=== PATIENT | female | born 1950 | race American Indian/Alaskan Native ===

== ENCOUNTER 2019-05-25 20:10 | Emergency (ER) | payer SELFPAY ==
--- NOTE | 2019-05-25 20:58 | Emergency Department Report ---
Chief Complaint: Chest Pain Stated Complaint: HIGH BP/MH EVAL - HPI History of Present Illness: 68 y.o. female with a history of HTn , bipolar, depression, and dementia presents with complaint of being on the floor, whining alot, and patient not eating. Patient is losing weight per granddaughter who she resides with. Patient states that she has been having chest pain for the past week. Patient denies auditory hallucinations, SI or HI. Patient has had no history of CAD and has had no prior stress studies. Daughter wants patient to be placed in [facility] and has behavioral health counselor at [place]. - Exam Vital Signs: reviewed MSE screening note: Focused history and physical exam performed. Due to findings the following was ordered: Patient ordered both a cardiac panel and will be ordered a psych clearance panel as well. ED Disposition for MSE Condition: Stable
[2019-05-25 21:51] LABS: Amphetamine Screen,Urine PRESUMPTIVE NEGATIVE; Benzodiazepines Screen,Urine PRESUMPTIVE NEGATIVE; Cannabinoid Screen,Urine PRESUMPTIVE NEGATIVE; Cocaine Screen,Urine PRESUMPTIVE NEGATIVE; Methadone Screen,Urine PRESUMPTIVE NEGATIVE; Opiate Screen,Urine PRESUMPTIVE NEGATIVE
--- NOTE | 2019-05-25 22:12 | XRay Report ---
CHEST 2 VIEWS INDICATION / CLINICAL INFORMATION: Chest Pain. COMPARISON: None available. FINDINGS: SUPPORT DEVICES: None. HEART / MEDIASTINUM: No significant abnormality. LUNGS / PLEURA: No significant pulmonary or pleural abnormality. No pneumothorax. ADDITIONAL FINDINGS: No significant additional findings. IMPRESSION: 1. No significant abnormality. Signer Name: Ebony Garcia MD Signed: 05/25/2019 10:07 PM Workstation Name: [id number]
--- NOTE | 2019-05-25 23:18 | Emergency Department Report ---
<XAVIER AHUMADARajwinder - Last Filed: 05/26/19 03:44> ED General Adult HPI - General Chief complaint: Chest Pain Stated complaint: HIGH BP/MH EVAL Time Seen by Provider: 05/25/19 22:12 Source: patient Mode of arrival: Ambulatory Limitations: No Limitations - History of Present Illness Initial comments: 68-year-old female with history of hypertension, dementia, bipolar disorder presents to ED for mental health evaluation. Granddaughter states today, patient has been having mood swings, ranging from being angry and agitated to cr erika and tearful. Granddaughter states patient is not currently on any psychiatric medications. States she believes it is due to an insurance issue. Granddaughter is requesting a mental health evaluation. States she is unable to take care of her when she gets into episodes such as this. Also states patient does not eat when she gets into these episodes. Patient denies SI, HI, hallucinations. Patient reports having chest pain earlier, but states it is currently resolved. Severity scale (0 -10): 5 - Related Data Allergies Allergy/AdvReac Type Severity Reaction Status Date / Time Penicillins Allergy Hives Verified 05/25/19 20:24 ED Past Medical Hx - Past Medical History Previous Medical History?: Yes Hx Hypertension: Yes Hx Psychiatric Treatment: Yes (Bipolar, Depression) Hx Dementia: Yes - Surgical History Past Surgical History?: No - Social History Smoking Status: Current Every Day Smoker Substance Use Type: None ED Physical Exam - General Limitations: No Limitations ED Medical Decision Making - Lab Data Result diagrams: 05/25/19 23:00 05/25/19 23:00 - EKG Data -: EKG Interpreted by Ca EKG shows normal: sinus rhythm, axis, intervals, QRS complexes, ST-T waves Rate: normal - EKG Data Interpretation: no acute changes - Radiology Data Radiology results: report reviewed, image reviewed - Medical Decision Making 68-year-old female presents to ED for mental health evaluation. Initially hypertensive, BP controlled with clonidine. Labs unremarkable except for hypokalemia with potassium of 2.8. Patient was given oral potassium. Magnesium level is normal. Patient is medically clear for mental health evaluation. ED Disposition Clinical Impression: Dementia Qualifiers: Dementia type: unspecified type Dementia behavioral disturbance: with behavioral disturbance Qualified Code(s): F03.91 - Unspecified dementia with behavioral disturbance Disposition: DC-01 TO HOME OR SELFCARE Condition: Stable Instructions: Dementia (ED) Referrals: PRIMARY CARE, [Primary Care Provider] - 3-5 Days <SOY JULES - Last Filed: 05/26/19 15:09> ED Review of Systems ROS: Stated complaint: HIGH BP/MH EVAL Other details as noted in HPI ED Course Vital Signs 05/25/19 05/25/19 05/25/19 21:00 22:18 23:50 Temperature 98.6 F Pulse Rate 99 H 92 H 89 Respiratory 18 16 16 Rate Blood Pressure Blood Pressure 192/117 174/105 171/112 [Left] O2 Sat by Pulse 99 100 100 Oximetry 05/26/19 05/26/19 05/26/19 00:52 01:43 04:00 Temperature Pulse Rate 88 96 H Respiratory 14 16 Rate Blood Pressure 161/110 Blood Pressure 141/64 [Left] O2 Sat by Pulse 100 99 Oximetry 05/26/19 05/26/19 05/26/19 08:39 08:41 08:45 Temperature Pulse Rate 86 103 H Respiratory 12 18 18 Rate Blood Pressure 144/97 Blood Pressure 168/108 [Left] O2 Sat by Pulse 100 100 100 Oximetry 05/26/19 05/26/19 05/26/19 09:00 09:15 09:30 Temperature Pulse Rate 81 81 85 Respiratory 34 H 28 H 23 Rate Blood Pressure 159/105 146/83 153/97 Blood Pressure [Left] O2 Sat by Pulse 97 99 99 Oximetry 05/26/19 05/26/19 05/26/19 09:45 10:00 10:15 Temperature Pulse Rate 88 85 89 Respiratory 19 22 23 Rate Blood Pressure 143/93 143/92 159/93 Blood Pressure [Left] O2 Sat by Pulse 100 99 99 Oximetry 05/26/19 05/26/19 05/26/19 10:30 10:45 11:00 Temperature Pulse Rate 90 94 H 81 Respiratory 16 15 18 Rate Blood Pressure 156/93 160/102 159/95 Blood Pressure [Left] O2 Sat by Pulse 100 100 100 Oximetry 05/26/19 05/26/19 05/26/19 11:15 11:30 11:46 Temperature Pulse Rate 82 78 79 Respiratory 20 22 22 Rate Blood Pressure 154/89 161/97 163/92 Blood Pressure [Left] O2 Sat by Pulse 99 98 99 Oximetry 05/26/19 05/26/19 05/26/19 12:00 12:15 12:30 Temperature Pulse Rate 91 H 101 H 83 Respiratory 15 21 25 H Rate Blood Pressure 163/92 164/84 140/98 Blood Pressure [Left] O2 Sat by Pulse 99 98 99 Oximetry 05/26/19 05/26/19 05/26/19 12:45 13:00 13:15 Temperature Pulse Rate 83 91 H 83 Respiratory 30 H 19 21 Rate Blood Pressure 157/90 133/109 140/81 Blood Pressure [Left] O2 Sat by Pulse 98 99 100 Oximetry 05/26/19 13:30 Temperature Pulse Rate 112 H Respiratory 21 Rate Blood Pressure 145/85 Blood Pressure [Left] O2 Sat by Pulse 100 Oximetry - Reevaluation(s) Reevaluation #1: 05/26/19 15:06 CLAUDIA GARCIA Female : 1950 MedRec# [id number] 05/26/19 14:19 - MH Teacher Education Director's Note by KALYN BUNDY Acct Num: [id number] : 1950 Patient Age: 68 Pt is a 68 yo AA female presenting to ED for MHE, as granddaughter reports mood swings. Pt presents as confused/forgetful, and is unable to provide any insight as to why she was admitted to ED. Pt easily distressed when unable to provide responses to assistant surveyor. Pt denies SI/HI. Teacher Education Director contacted granddaughter Doris Quintanilla at [phone] for collateral information. Per granddaughter, behaviors onset 3 months ago and has since worsened. Daughter stated that pt has a dx of Bipolar and is in the process of receiving a formal dx of Dementia, so that she can move forward with receiving necessary services. Pt presents with regressive behaviors that are difficult to manage in home. Per granddaughter, pts memory is declining and pt sometimes forgets where she is at, even if it is one minute away from home. Pt has hx of wandering from home, which has resulting in police contact and missing person reports. Granddaughter reports up and down moods of sadness and happiness. Pt is recently in need of assistance with medication regimen, as pt has been unable to take medication as prescribed. Granddaughter stated that pt is connected to [facility] and has a scheduled appointment 06/05/2019. Pt is currently uninsured, which has interfered with pts medical consultations and specialty appointments at [facility]. Pt is connected to case-management at [facility] to move forward with getting insurance established and SNF placement secured. Per granddaughter, application has been filed and they are currently in the process of searching for placement. Recommendations: Pt does not meet criteria for IP psychiatric stabilization and is being recommended for discharge, as pt presents with inability to care for self and could benefit from SNF placement. Pt is already connected to [facility] case finishing machine adjuster and has started process. Initialized on 05/26/19 14:19 - END OF NOTE Reevaluation #2: 05/26/19 15:07 Patient was cleared by our mental health assessment team. Patient likely is having some advancement of dementia causing of the great deal of her symptoms. She has been medically cleared at this time. Patient is daughter has agreed to pick the patient up and try to arrange for the patient to go to a correction facility which is already been started with [facility]. ED Medical Decision Making - Lab Data Result diagrams: 05/25/19 23:00 05/26/19 13:58 Critical care attestation.: If time is entered above; I have spent that time in minutes in the direct care of this critically ill patient, excluding procedure time. ED Disposition Is pt being admited?: No Does the pt Need Aspirin: No Time of Disposition: 15:08
[2019-05-25 23:29] LABS: Basophils # (Auto) 0.1 K/mm3 (0.0-0.1); Basophils % (Auto) 0.5 % (0.0-1.8); Eosinophils # (Auto) 0.1 K/mm3 (0.0-0.4); Eosinophils % (Auto) 0.5 % (0.0-4.3); Hematocrit 41.6 % (30.3-42.9); Hemoglobin 14.1 gm/dl (10.1-14.3); Lymphocytes # (Auto) 3.6 K/mm3 (1.2-5.4); Lymphocytes % (Auto) 28.8 % (13.4-35.0); Mean Corpuscular HGB Conc 34 % (30-34); Mean Corpuscular Volume 91 fl (79-97); Monocytes # (Auto) 0.6 K/mm3 (0.0-0.8); Monocytes % (Auto) 5.1 % (0.0-7.3); Platelet Count 457 K/mm3 (140-440); Red Blood Count 4.56 M/mm3 (3.65-5.03); Red Cell Distribution Width 13.4 % (13.2-15.2)
[2019-05-25 23:37] LABS: INR 1.36 (0.87-1.13)
[2019-05-25 23:38] LABS: Partial Thromboplastin Time 26.8 Sec. (24.2-36.6)
[2019-05-25 23:42] LABS: Alanine Aminotransferase 12 units/L (7-56); Albumin 4.6 g/dL (3.9-5); BUN/Creatinine Ratio 8; Blood Urea Nitrogen 7 mg/dL (7-17); Calcium 10.4 mg/dL (8.4-10.2); Hemolysis Index 3
[2019-05-26] MEDS ORDERED: POTASSIUM CHLORIDE ER 20 MEQ TAB PO ONE (00:44)
[2019-05-26] MEDS ORDERED: cloNIDine 0.1 MG TAB PO ONE (00:45)
[2019-05-26 01:00] LABS: Bilirubin,Urine NEG (Negative); Blood,Urine MOD (Negative); Color,Urine Straw (Yellow); Protein,Urine <15 mg/dL mg/dL (Negative); Urobilinogen,Urine < 2.0 mg/dL (<2.0)
[2019-05-26 16:41] VITALS: BP 172/115
== END 2019-05-26 16:40 | disposition home or self-care (01) ==
LOC: ED 20:10
DX: F03.90 Unspecified dementia, unspecified severity, without behavioral disturbance, psychotic disturbance, mood disturbance, and anxiety (principal); I10 Essential (primary) hypertension; F31.9 Bipolar disorder, unspecified; F17.200 Nicotine dependence, unspecified, uncomplicated
CPT/HCPCS: 36415; 71046; 80053; 80307; 80320; 81001; 83735; 83880; 84132; 84484; 85025; 85610; 85730; 93005; 93010; 99284; G0480

== ENCOUNTER 2020-11-18 23:11 | Emergency (ER) | payer MEDICARE | END 2020-11-19 01:28 | disposition left against medical advice (07) | LOC: ED 23:11 | DX: R22.9 Localized swelling, mass and lump, unspecified (principal); Z53.21 Procedure and treatment not carried out due to patient leaving prior to being seen by health care provider ==

== ENCOUNTER 2020-11-19 07:58 | Emergency (ER) | payer MEDICAID, MEDICARE ==
--- NOTE | 2020-11-19 08:12 | Emergency Department Report ---
ED General Adult HPI - General Chief complaint: Neuro Symptoms/Deficit Stated complaint: NEURO DEFICIT Time Seen by Provider: 11/19/20 08:03 Source: patient, family Mode of arrival: Ambulatory Limitations: Altered Mental Status - History of Present Illness Initial comments: Chief complaint: "I want to go home." HPI: This is a 70-year-old female history of hypertension, Alzheimer's dementia, bipolar disorder, depression who presents with left facial swelling. I obtained history from daughter Rubina phone [phone]. Patient is a resident of [place] [facility]. Caregiver phone #[phone]. Jose Armando informed me that caregiver called her. She reported face has been swollen. She is not feeling well. She is not eating. Caregiver spoke with charge nurse. She stated patient is just not herself. Her speech is not as fluid. Patient denies any pain. She denies any discomfort. She states that she wants to go home. Printed document EMS report corroborated patient's complaint of swelling around the left eye. I spoke with Tracy dang has been the caregiver for Ms. Miller for 3 years. Caregiver was concerned about discoloration under the left eye. She also has noticed weight loss for the last several months. She is followed by a PCP -: Gradual, days(s) (Several days) Consistency: other (No notable facial swelling) Improves with: none Worsens with: none Associated Symptoms: other (Slightly confused not eating or drinking) - Related Data Previous Rx's Medication Instructions Recorded Last Taken Type ALPRAZolam [Xanax TAB] 0.25 mg PO BID PRN #10 tab 05/26/19 Unknown Rx Amlodipine Besylate [Norvasc] 5 mg PO DAILY #30 tablet 05/26/19 Unknown Rx Mirtazapine [Remeron 30mg TAB] 30 mg PO QHS #30 tablet 05/26/19 Unknown Rx Nitrofurantoin [place]/M-Cryst 100 mg PO Q12HR 5 Days #10 capsule 11/19/20 Unknown Rx [Macrobid CAP] Allergies Allergy/AdvReac Type Severity Reaction Status Date / Time Penicillins Allergy Hives Verified 05/25/19 20:24 ED Review of Systems ROS: Stated complaint: NEURO DEFICIT Other details as noted in HPI Comment: Unobtainable due to pts medical conditions (Dementia patient does say no to all questions) ED Past Medical Hx - Past Medical History Previous Medical History?: Yes Hx Hypertension: Yes Hx Psychiatric Treatment: Yes (Bipolar, Depression) Hx Dementia: Yes (Alzheimer's) - Surgical History Additional Surgical History: Unable to obtain - Family History Family history: hypertension - Social History Smoking Status: Unknown if ever smoked Substance Use Type: None - Medications Home Medications: Home Medications Medication Instructions Recorded Confirmed Last Taken Type ALPRAZolam [Xanax TAB] 0.25 mg PO BID PRN #10 tab 05/26/19 Unknown Rx Amlodipine Besylate [Norvasc] 5 mg PO DAILY #30 tablet 05/26/19 Unknown Rx Mirtazapine [Remeron 30mg TAB] 30 mg PO QHS #30 tablet 05/26/19 Unknown Rx Nitrofurantoin [place]/M-Cryst 100 mg PO Q12HR 5 Days #10 capsule 11/19/20 Unknown Rx [Macrobid CAP] ED Physical Exam - General Limitations: Altered Mental Status General appearance: alert, in no apparent distress, other (GCS 14 cooperative directable) - Head Head exam: Present: atraumatic, normocephalic - Eye Eye exam: Present: normal appearance - ENT ENT exam: Present: mucous membranes moist - Neck Neck exam: Present: normal inspection, full ROM - Respiratory Respiratory exam: Present: normal lung sounds bilaterally. Absent: respiratory distress, wheezes, rales, rhonchi - Cardiovascular Cardiovascular Exam: Present: regular rate, normal rhythm, normal heart sounds. Absent: systolic murmur, diastolic murmur, rubs, gallop - GI/Abdominal GI/Abdominal exam: Present: soft, normal bowel sounds. Absent: distended, tenderness, guarding, rebound - Extremities Exam Extremities exam: Present: normal inspection - Back Exam Back exam: Present: normal inspection - Neurological Exam Neurological exam: Present: alert, other (Oriented to name) - Psychiatric Psychiatric exam: Present: normal mood, flat affect - Skin Skin exam: Present: warm, dry, intact, normal color. Absent: rash ED Medical Decision Making - Lab Data Result diagrams: 11/19/20 08:33 11/19/20 08:33 - Medical Decision Making 1. Left facial swelling: No indication of infection or trauma. 2. Alzheimer's dementia: Patient has had decreased food intake. She ate a full meal here in emergency department. I have requested case management consult. Patient is in a personal alf. I want to ensure that the personal-alf general dentist/owner has the adequate resources to care for patient. Patient is ambulatory. She is cooperative. 3. Patient is a flight risk. Will treat for preumed UIT without UA. Prescribed Macrobid Critical care attestation.: If time is entered above; I have spent that time in minutes in the direct care of this critically ill patient, excluding procedure time. ED Disposition Clinical Impression: Alzheimer's dementia, Left facial swelling, UTI (urinary tract infection) Disposition: HOME / SELF CARE / HOMELESS Is pt being admited?: No Does the pt Need Aspirin: No Condition: Stable Instructions: Dementia Caregiver Guide Prescriptions: Nitrofurantoin [place]/M-Cryst [Macrobid CAP] 100 mg PO Q12HR 5 Days #10 capsule Referrals: [facility] [Other] - 3-5 Days
[2020-11-19 08:52] LABS: Basophils # (Auto) 0.1 K/mm3 (0.0-0.1); Basophils % (Auto) 0.6 % (0.0-1.8); Eosinophils % (Auto) 0.5 % (0.0-4.3); Hemoglobin 10.9 gm/dl (10.1-14.3); Lymphocytes # (Auto) 2.6 K/mm3 (1.2-5.4); Lymphocytes % (Auto) 26.7 % (13.4-35.0); Monocytes # (Auto) 0.6 K/mm3 (0.0-0.8); Monocytes % (Auto) 6.3 % (0.0-7.3)
[2020-11-19 09:03] LABS: Blood Urea Nitrogen 6 mg/dL (7-17); Calcium 10.3 mg/dL (8.4-10.2); Hemolysis Index 0
[2020-11-19 09:17] LABS: Hematocrit 32.5 % (30.3-42.9); Mean Corpuscular HGB Conc 34 % (30-34); Mean Corpuscular Volume 90 fl (79-97); Platelet Count 550 K/mm3 (140-440); Red Blood Count 3.62 M/mm3 (3.65-5.03); Red Cell Distribution Width 13.6 % (13.2-15.2)
[2020-11-19 09:20] LABS: BUN/Creatinine Ratio 12
== END 2020-11-19 10:30 | disposition home or self-care (01) ==
LOC: ED 07:58
DX: G30.9 Alzheimer's disease, unspecified (principal); F02.80 Dementia in other diseases classified elsewhere, unspecified severity, without behavioral disturbance, psychotic disturbance, mood disturbance, and anxiety; R60.9 Edema, unspecified; N39.0 Urinary tract infection, site not specified; Z88.0 Allergy status to penicillin; F31.9 Bipolar disorder, unspecified; I10 Essential (primary) hypertension
CPT/HCPCS: 36415; 80048; 85025; 99283